=== PATIENT | male | born 1975 | race Caucasian/White ===

== ENCOUNTER 2018-10-06 12:33 | Emergency (ER) | payer BC ==
--- NOTE | 2018-10-06 13:07 | EDM.PDOC ---
ED HPI GENERAL MEDICAL PROBLEM - General Chief Complaint: Laceration Stated Complaint: CUT LEG WITH CHAINSAW Time Seen by Provider: 10/06/18 13:00 Source of Information: Reports: Patient History Limitations: Reports: No Limitations - History of Present Illness INITIAL COMMENTS - FREE TEXT/NARRATIVE: 43 yo male present to ER with chainsaw laceration to left knee. He was standing and the saw hit another tree and bounced into his left leg just below the knee cap. generally healthy. pain is controlled knee Pain Score (Numeric/FACES): 2 - Related Data Allergies Allergy/AdvReac Type Severity Reaction Status Date / Time No Known Allergies Allergy Verified 10/06/18 12:55 Home Meds: Home Meds NK [No Known Home Meds] 10/06/18 [History] Past Medical History - Past Surgical History GI Surgical History: Reports: Hernia Repair/Other Social & Family History - Tobacco Use Smoking Status *Q: Never Smoker - Recreational Drug Use Recreational Drug Use: No ED ROS GENERAL - Review of Systems Review Of Systems: See Below Constitutional: Denies: Fever, Chills Respiratory: Denies: Shortness of Breath, Wheezing Cardiovascular: Denies: Chest Pain ED EXAM, SKIN/RASH Exam: See Below Exam Limited By: No Limitations General Appearance: Alert, WD/WN, No Apparent Distress Respiratory/Chest: No Respiratory Distress ED SKIN PROCEDURES - Laceration/Wound Repair Left Anterior Knee Lac/Wound length In cm: 7 Appearance: Superficial, Subcutaneous, Irregular, Clean Distal NVT: Neuro & Vascular Intact, No Tendon Injury Anesthetic Type: Local Local Anesthesia - Lidocaine (Xylocaine): 1% with EPI Skin Prep: Chlorhexidine (Hibiciens), Saline Saline Irrigation (cc's): 500 Exploration/Debridement/Repair: Wound Explored, In a Bloodless Field, Explored to Base, Minimal Debridement, No Foreign Material Found, Wound Margins Revised Closed with: Sutures Suture Size: 4-0 # of Sutures: 17 Suture Type: Nylon Suture Size: 4-0 # of Sutures: 4 Repaired with: Chromic Tetanus Status Addressed: Yes Complications: No Course - Vital Signs Last Recorded V/S: Last Vital Signs Temp 35.5 C 10/06/18 12:54 Pulse 54 L 10/06/18 12:54 Resp 12 10/06/18 12:54 BP 114/71 10/06/18 12:54 Pulse Ox 98 10/06/18 12:54 - Orders/Labs/Meds Meds: Medications Discontinued Medications Generic Name Dose Route Start Last Admin Trade Name Melissa PRN Reason Stop Dose Admin Bacitracin 1 dose 10/06/18 14:13 10/06/18 14:22 Bacitracin Oint 1 Gm TOP 10/06/18 14:14 1 dose ONETIME ONE Administration Lidocaine/Epinephrine 5 ml 10/06/18 13:12 10/06/18 13:30 Xylocaine 1% With Epinephrine 1:100,000 INFILT 10/06/18 13:13 5 ml ONETIME ONE Administration - Re-Assessments/Exams Free Text/Narrative Re-Assessment/Exam: 10/06/18 14:43 x-ray no involvement of joint and no foreign material. see procedure note for closure. pt tolerated well Departure - Departure Time of Disposition: 14:14 Disposition: Home, Self-Care 01 Condition: Good Clinical Impression: Laceration, Contact with chainsaw as cause of accidental injury - Discharge Information *PRESCRIPTION DRUG MONITORING PROGRAM REVIEWED*: Not Applicable *COPY OF PRESCRIPTION DRUG MONITORING REPORT IN PATIENT JAYJAY: Not Applicable Instructions: Stitches, Robert, or Adhesive Wound Closure, [id number] Referrals: PCP,None [Primary Care Provider] - Forms: ED Department Discharge Additional Instructions: ice as much as possible for the next 48 hours sutures out in 7-9 days observe for signs of infection - fire engine red, purulent drainage, increase in pain
[2018-10-06] MEDS ORDERED: Lidocaine 1% with EPINEPHrine 1:100,000 50 ML MDV INFILT ONE (13:12)
--- NOTE | 2018-10-06 13:40 | CRLCR ---
HISTORY: Knee pain after injury. FINDINGS: Three views of the left knee are provided. There are no findings for fracture, dislocation, effusion or loose body. Irregularity is seen in the soft tissues anterior to the patella on the lateral view which could represent potential soft tissue wound. No foreign body is noted. Dictated by Christopher Collazo MD @ Oct 06 2018 1:39PM Signed by Dr. Christopher Collazo @ Oct 06 2018 1:40PM
[2018-10-06] MEDS ORDERED: Bacitracin Oint 1 GM U/D Packet TOP ONE (14:13)
== END 2018-10-06 14:22 | disposition home or self-care (01) ==
LOC: JP.ED 12:33
DX: S81.012A Laceration without foreign body, left knee, initial encounter (principal); W29.3XXA Contact with powered garden and outdoor hand tools and machinery, initial encounter
CPT/HCPCS: 12002; 73562-LT; 99282-25